=== PATIENT | female | born 1995 | race Hispanic/Latino ===

== ENCOUNTER 2022-11-08 20:33 | Emergency (ER) | payer MEDICAID, OTHER ==
[~2022-11-08] VITALS: Ht 160 cm; Wt 54.9 kg
[2022-11-08 22:41] VITALS: BP 121/60; PULSE 78; RESP 16; O2SAT 100
== END 2022-11-08 22:59 | disposition home or self-care (01) ==
LOC: EDH 20:33
DX: S60.141A Contusion of right ring finger with damage to nail, initial encounter (principal); W23.0XXA Caught, crushed, jammed, or pinched between moving objects, initial encounter; Y93.89 Activity, other specified; Y92.89 Other specified places as the place of occurrence of the external cause; Y99.8 Other external cause status
CPT/HCPCS: 73140